=== PATIENT | female | born 1990 | race Caucasian/White ===

== ENCOUNTER 2016-07-08 23:30 | Emergency (ER) | payer BC, OTHER ==
[2016-07-08 23:34] VITALS: BP 127/79; PULSE 76; RESP 14; TEMP 97.5; O2SAT 99
--- NOTE | 2016-07-08 23:46 | EDPHY ---
H & P Stated Complaint: burn L wrist Time Seen by Provider: 07/08/16 23:34 HPI/ROS: Chief complaint: Burn to left wrist HPI: 25-year-old female was cooking brooks this evening when she accidentally spilled taking crease on her left forearm. Patient sustained a burn with some blistering over that site. Denies any other injuries. Is up-to-date on her tetanus. States that there was a large blister immediately which immediately ruptured. No difficulty moving her hand or fingers. ROS: 10 point Review of Systems is negative except as noted in the HPI. Past medical history: None Medications: None Allergies: None Physical exam: Gen: [Awake], [Alert], [No Distress] Left wrist: She has a non circumferential partial-thickness burn over the radial aspect of her left distal forearm. It does not cross joint. She has full flexion extension of the wrist and hand and fingers. There is a ruptured bulla in the central region. There is full sensation. Total body surface area is less than 1%. - Personal History LMP (Females 10-55): Now Current Tetanus/Diphtheria Vaccine: Yes - Medical/Surgical History Hx Asthma: No Hx Chronic Respiratory Disease: No Hx Diabetes: No Hx Cardiac Disease: No Hx Renal Disease: No Hx Cirrhosis: No Hx Alcoholism: No Hx HIV/AIDS: No Hx Splenectomy or Spleen Trauma: No Other PMH: PSHx: R wrist. PMHx: denies - Social History Smoking Status: Current some day smoker Constitutional: Initial Vital Signs Temperature (C) 36.4 C 07/08/16 23:32 Heart Rate 76 07/08/16 23:32 Respiratory Rate 14 07/08/16 23:32 Blood Pressure 127/79 H 07/08/16 23:32 O2 Sat (%) 99 07/08/16 23:32 O2 Delivery Mode Room Air Allergies/Adverse Reactions: No Known Allergies Allergy (Unverified 03/03/16 01:49) Home Medications: Medication Instructions Recorded oxyCODONE/APAP 5/325 [Percocet 1 - 2 tab PO Q4H PRN #10 tab 07/08/16 5/325 (*)] Medical Decision Making ED Course/Re-evaluation: Patient placed in a burn dressing with bacitracin Vaseline gauze and Kerlix. She is given analgesia. [facility] week. Departure - Departure Disposition: Home, Routine, Self-Care Clinical Impression: Burn Condition: Good Instructions: Second Degree Burn (ED) Additional Instructions: Follow up with the burn center in 2-3 days for recheck. Return emergency department for increasing redness, pus from the wound, fevers, chills, or any concerns. You may take oxycodone as needed for pain. Referrals: NONE *PRIMARY CARE P,. [Primary Care Provider] - As per Instructions [facility] [Clinic] - As per Instructions Prescriptions: oxyCODONE/APAP 5/325 [Percocet 5/325 (*)] 1 - 2 tab PO Q4H PRN #10 tab PRN Reason: Pain, Severe
[2016-07-08] MEDS ORDERED: OXYCODONE/APAP 5/325 TAB PO ONE (23:47)
== END 2016-07-08 23:59 | disposition home or self-care (01) ==
DX: T22.212A Burn of second degree of left forearm, initial encounter (principal); F17.200 Nicotine dependence, unspecified, uncomplicated; X19.XXXA Contact with other heat and hot substances, initial encounter